=== PATIENT | female | born 1965 | race Caucasian/White ===

== ENCOUNTER 2022-10-26 14:30 | Emergency (ER) | payer BC ==
[~2022-10-26] VITALS: Ht 157.5 cm; Wt 81.6 kg
[2022-10-26 14:53] VITALS: BP 131/84
--- NOTE | 2022-10-26 14:57 | NUR ---
PT BIBA TO BED 12.
--- NOTE | 2022-10-26 15:00 | NUR ---
BIBA C/O NECK, R UPPER BACK PAIN S/P TCX TODAY. DENIES LOC. 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 [employer] NO DEPLOYMENT. PMH: DM, HTN, HLD
[2022-10-26] MEDS ORDERED: KETOROLAC 30 MG/ML VIAL IM ONE (15:10)
[2022-10-26] MEDS ORDERED: NAPR-1704 PO ×2 (16:38→16:56)
[2022-10-26] MEDS ORDERED: CAPS1ADH5 TP ×2 (16:38→16:56)
--- NOTE | 2022-10-26 16:55 | NUR ---
Patient discharged with v/s stable. Written and verbal after care instructions given and explained. Patient alert, oriented and verbalized understanding of instructions. Ambulatory with steady gait. All questions addressed prior to discharge. ID band removed. Patient advised to follow up with PMD. Rx of NAPROSYN, SALON PAS PATCH given. Patient educated on indication of medication including possible reaction and side effects. Opportunity to ask questions provided and answered.
== END 2022-10-26 16:55 | disposition home or self-care (01) ==
LOC: EDBD 14:30 → MED 14:30
DX: S13.4XXA Sprain of ligaments of cervical spine, initial encounter (principal); S39.012A Strain of muscle, fascia and tendon of lower back, initial encounter; S50.01XA Contusion of right elbow, initial encounter; E11.9 Type 2 diabetes mellitus without complications; I10 Essential (primary) hypertension; E78.5 Hyperlipidemia, unspecified; Z79.899 Other long term (current) drug therapy; V89.2XXA Person injured in unspecified motor-vehicle accident, traffic, initial encounter; Y93.89 Activity, other specified; Y92.89 Other specified places as the place of occurrence of the external cause; Y99.8 Other external cause status
CPT/HCPCS: 72050; 72100; 96372; 99283; J1885